=== PATIENT | female | born 1940 | race Caucasian/White ===

== ENCOUNTER → 2017-10-09 | Outpatient (CLI) | payer MEDICARE ==
[~2017-10-09] MED LIST: METFORMIN HCL500 M3; METOPROLOL; METROPROLOL; Z.0.NEXIUM40 MG PO; Z.1.HYDROCHLOROTH12. PO; Z.1.VITAMIN E400 UNI PO
--- NOTE | 2017-10-09 17:35 | Diagnostic Imaging Report ---
PROCEDURE: Frontal and lateral views of the chest. COMPARISON: None. INDICATIONS: CHEST CONGESTION FINDINGS: Lines/tubes: None. Lungs: The lungs are well inflated. There is no evidence of pneumonia or pulmonary edema. Redemonstrated are linear opacities in the left lower lobe with tenting of the left hemidiaphragm, suggestive of pleural/parenchymal scarring. Overall, there is volume loss in left hemithorax, unchanged. Pleura: There is no pleural effusion or pneumothorax. Heart and mediastinum: Heart size is normal. The aorta is tortuous and calcified. Surgical clips are again seen projected over the left hemithorax. Bones: Mild multilevel degenerative changes of the thoracic spine. Healed fracture deformities of the left posterior fourth and fifth ribs, unchanged. IMPRESSION: No evidence of infection or edema. Left lower lobe pleural/parenchymal scarring, unchanged. Dictated by: Michael High M.D. on 10/09/2017 at 17:34 Electronically approved by: Michael High M.D. on 10/09/2017 at 17:34
== END ==
LOC: RAD 16:30
PROVIDERS: ATTEND Internal Medicine
DX: J18.9 Pneumonia, unspecified organism (principal)
CPT/HCPCS: 71046